=== PATIENT | female | born 1985 | race Caucasian/White ===

== ENCOUNTER 2017-07-14 13:51 | Inpatient (IN) ==
[2017-07-14] MEDS ORDERED: NS 1,000 ML IV ONE (15:12)
[2017-07-14 15:17] LABS: URINE CULTURE PL NEEDED? NO
[2017-07-14 15:26] LABS: BILIRUBIN URINE NEGATIVE (NEGATIVE); BLOOD URINE 4+ (NEGATIVE); CLARITY SL. CLOUDY (CLEAR); COLOR AMBER; GLUCOSE URINE NEGATIVE (NEGATIVE); LEUKOCYTES URINE 2+ (NEGATIVE); NITRITE URINE NEGATIVE (NEGATIVE); PH URINE 6.5; PROTEIN URINE 1+(30 mg/dL) mg/dL (NEGATIVE); UROBILINOGEN URINE NORMAL
[2017-07-14 15:27] LABS: URINE EPITHELIAL CELLS <10 /HPF (<10); URINE RBC TNTC /HPF (<10); URINE SOURCE CLEAN CATCH
[2017-07-14 15:32] LABS: MANUAL DIFF NEEDED? NO
[2017-07-14 15:35] LABS: BASO% 0.4 % (0.0-0.8); EOS# 0.34 X1000 (0.0-0.7); EOS% 2.6 % (0.0-10.0); HEMATOCRIT 31.1 % (37.0-47.0); HEMOGLOBIN 10.2 g/dL (12.0-16.0); IMM GRAN# 0.17 X1000 (0.0-0.04); IMM GRAN% 1.3 % (0.0-0.5); LYMPH# 3.05 X1000 (1.2-3.4); LYMPH% 23.3 % (20.5-51.1); MCH 27.8 PG (27-31); MCHC 32.8 g/dL (33-37); MCV 84.7 FL (81-99); MONO# 0.43 X1000 (0.11-0.59); MONO% 3.3 % (1.7-9.3); MPV 10.7 FL (7.4-10.4); NEUT% 69.1 % (42.2-75.2); PLT 271 X1000 (130-400); RBC 3.67 XMIL (4.2-5.4)
[2017-07-14 15:51] LABS: AGAP 14; ALBUMIN 3.3 g/dL (3.5-5.0); ALKALINE PHOSPHATASE 159 U/L (32-104); AMYLASE 18 U/L (20-200); BUN 8 mg/dL (8-22); CALCIUM 8.8 mg/dL (8.8-10.2); CHLORIDE 106 mmol/L (98-107); CK PROFILE 60 U/L (24-173); COSMO 281; GOT 21 U/L (10-30); GPT 30 U/L (10-36); LIPASE 29 U/L (13-60); MAGNESIUM 1.8 mg/dL (1.5-2.7); POTASSIUM 3.2 mmol/L (3.5-5.1); SODIUM 142 mmol/L (136-145); TCO2 22 mmol/L (25-35); TOTAL PROTEIN 6.4 g/dL (6.3-8.3)
[2017-07-14 15:55] LABS: UR AMPHETAMINES QUAL NONE DETECTED (NONE DETECT); UR BARBITUATES QUAL NONE DETECTED (NONE DETECT); UR BENZODIAZEPIN QUAL NONE DETECTED (NONE DETECT); UR CANNABINOIDS QUAL NONE DETECTED (NONE DETECT); UR COCAINE QUAL NONE DETECTED (NONE DETECT); UR MDMA QUAL NONE DETECTED (NONE DETECT); UR METHADONE QUAL NONE DETECTED (NONE DETECT); UR METHAMPHETAMINE QUAL NONE DETECTED (NONE DETECT); UR OPIATES QUAL NONE DETECTED (NONE DETECT); UR OXYCODONE QUAL NONE DETECTED (NONE DETECT); UR PCP QUAL NONE DETECTED (NONE DETECT); UR TCA QUAL NONE DETECTED (NONE DETECT)
--- NOTE | 2017-07-14 16:01 | PROVIDER DOCUMENTATION ---
This chart was entered by Kristen Dumont Scribe, acting as scribe for Martin Carlson MD. HPI-Female /OB/Breast - General Chief Complaint: Complaint Stated Complaint: POST PART COMPLAINT Time Seen by Provider: 07/14/17 14:12 Source: reports: patient Allergies/Adverse Reactions: Patient Allergies Allergy/AdvReac Type Severity Reaction Status Date / Time codeine Allergy ITCHING Verified 04/26/15 15:23 nalbuphine HCl * Allergy HIVES Verified 04/26/15 15:23 [From Nubain] Home Medications: Home Medication List Medication Instructions Recorded Confirmed Last Taken Type Pnv95/Ferrous Fumarate/FA 1 tab PO DAILY 03/12/17 03/12/17 03/12/17 History [ Vitamins Tablet] - History of Present Illness-Female /OB Nature of Presenting Problem: Pt is a 32 y/o F presents to the ED with generalized abdominal pain. Pt states she is one week post . Pt states vaginal delivery. Pt states she is A0. Pt states diarrhea and nausea. Pt denies vomiting. Pt states weakness, SOB and chills. Does patient report she is ?: No (7 days post ) Location of complaint: reports: other (generalized abdomen) Radiation: reports: none Quality of Pain: reports: aching Severity in ED: reports: mild Onset/Duration: reports: 1 week ago Timing: reports: still present Context/Activities at Onset: reports: light activity Vaginal Symptoms: reports: no symptoms Vaginal Bleeding Amount: None Urinary Symptoms: reports: no symptoms Contraception: reports: none Modifying Factors: improves with: nothing Associated Symptoms: reports: diarrhea, fever/chills (chills), nausea, weakness , other (SOB) Similar Symptoms Previously?: Yes (present for one week ) Recently seen or treated by another doctor?: Yes (seen OBGYN one week ago ) - LMP/ History Menstrual Status: post- : 2 Para: 2 : 0 Prior Delivery: vaginal Review of Systems - Adult - REVIEW OF SYSTEMS - ADULT Constitutional: reports: chills. denies: fever, fatique Eyes: denies: decreased vision, blurred vision, double vision Ears, Nose, Mouth & Throat: denies: ear pain, nose pain, throat pain Cardiovascular: denies: chest pain, heart murmur, irregular heart rate Respiratory: reports: shortness of breath. denies: cough, wheezing Gastrointestinal: reports: abdominal pain (generalized), diarrhea, nausea. denies: vomiting Genitourinary: denies: dysuria, flank pain, hematuria Musculoskeletal: denies: bone pain, joint pain, neck pain Integumentary: denies: hives, itching, rash Neurological: denies: dizziness/vertigo, headache/migraines, numbness, seizure, syncope Psychiatric: reports: no symptoms reported Endocrine: reports: no symptoms reported Hematologic/Lymphatic: reports: no symptoms reported Allergic/Immunologic: reports: no symptoms reported All Other Systems: Reviewed and Negative Past History - Adult - PAST MEDICAL HISTORY-ADULT Review of Records: reports: Nursing Assessment Review, Medications Reviewed, Social history reviewed & non-contributory. Major Childhood Illnesses: reports: denies history Cardiovascular: reports: denies history Respiratory: reports: denies history Gastrointestinal: reports: denies history Obstetrical/Gynecological: reports: denies history Genitourinary: reports: kidney stones Musculoskeletal: reports: denies history Neurological: reports: denies history Psychiatric: reports: anxiety Endocrine/Immune: reports: denies history Other Conditions: reports: denies history - PRIOR SURGERIES/PROCEDURES Surgical/Procedure History: reports: cholecystectomy - IMMUNIZATION STATUS Childhood Immunizations: See Nurse Assessment Flu Vaccine: See Nurse Assessment - FAMILY HISTORY Family History: reviewed, not pertinent - SOCIAL HISTORY Smoking: cigarettes, greater than 1 pack/day Provider spent 3-5 mins advising pt. on dangers of tobacco.: Discussed manners to quit use, and f/u contacts for add'l counseling. Substance Use: alcohol Alcohol Use Frequency: occasionally Number of drinks per typical drinking period:: 2 drinks Living Situation: family Physical Exam-General - PHYSICAL EXAM-ADULT Initial Vital Signs Reviewed: Yes - CONSTITUTIONAL General Appearance: appears well, alert, no apparent distress. negative: lethargic, slow to respond - EYES Eyes: PERRL/EOMI, pink conjunctivae. negative: pale conjunctivae, sunken eyes - HEAD, EARS, NOSE, MOUTH & THROAT HENMT: normal ENT inspection. negative: angioedema, hearing deficit - NECK Neck: normal inspection. negative: lymphadenopathy, tender lateral - RESPIRATORY Respiratory: chest non-tender, lungs clear, normal breath sounds. negative: crackles, wheezing - CARDIOVASCULAR Cardiovascular: normal peripheral pulses, regular rate, rhythm. negative: tachycardia, systolic murmur - GASTROINTESTINAL (ABDOMEN) Abdominal Exam: normal bowel sounds, soft, tenderness (generalized). negative: distended, rebound - LYMPHATIC Lymphatic: no adenopathy. negative: enlargement, streaking - MUSCULOSKELETAL Back Exam: normal inspection. negative: ecchymosis, vertebral tenderness Extremity: normal inspection. negative: deformity, erythema, tenderness - SKIN Integumentary: normal color, normal turgor, warm/dry. negative: diaphoresis, ecchymosis, erythema, laceration(s) - NEUROLOGIC Neurologic: grossly normal. negative: aphasia, facial droop - PSYCHIATRIC Psych/Mental Status: normal mood/affect, oriented x 3. negative: paranoid, tearful Progress - PLAN OF CARE/RESULTS Progress/Plan/Lab Results: Vital Signs - 8 hr 07/14/17 13:56 07/14/17 16:58 07/14/17 17:07 Temperature 98 F Pulse Rate 58 L 47 L 47 L Respiratory Rate 18 20 21 Blood Pressure 184/101 179/86 178/92 O2 Sat by Pulse Oximetry 98 94 L 97 Laboratory Results - last 24 hr 07/14/17 07/14/17 07/14/17 15:10 15:10 15:29 WBC RBC Hgb Hct MCV MCH MCHC RDW Std Deviation Plt Count MPV Immature Gran % (Auto) Neut % (Auto) Lymph % (Auto) Jerome % (Auto) Eos % (Auto) Baso % (Auto) Immature Gran # (Auto) Neut # (Auto) Lymph # (Auto) Jerome # (Auto) Eos # (Auto) Baso # (Auto) Sodium 142 Potassium 3.2 L Chloride 106 Carbon Dioxide 22 L Anion Gap 14 BUN 8 Creatinine 0.7 Estimated GFR/1.73 m2 > 60 BUN/Creatinine Ratio 11 Glucose 85 Calculated Osmolality 281 Calcium 8.8 Magnesium 1.8 Total Bilirubin 0.20 AST 21 ALT 30 Alkaline Phosphatase 159 H Creatine Kinase 60 Troponin T [id number] Pept Total Protein 6.4 Albumin 3.3 L Globulin 3.0 Albumin/Globulin Ratio 1.0 Amylase 18 L Lipase 29 Urine Source CLEAN CATCH Urine Color MEENU Urine Clarity SL. CLOUDY A Urine pH 6.5 Ur Specific [place] 1.010 Urine Protein 1+(30 mg/dL) A Urine Ketones NEGATIVE Urine Blood 4+ Urine Nitrite NEGATIVE Urine Bilirubin NEGATIVE Urine Urobilinogen NORMAL Urine Microscopic RBC TNTC A Urine WBC 2+ A Urine Microscopic WBC 10-20 A Ur Epithelial Cells <10 Urine Glucose NEGATIVE Urine Opiates Screen NONE DETECTED Ur Oxycodone Screen NONE DETECTED Urine Methadone Screen NONE DETECTED Ur Barbituates Screen NONE DETECTED Ur Tricyclics Screen NONE DETECTED Ur Phencyclidine Scrn NONE DETECTED Ur Amphetamines Screen NONE DETECTED U Methamphetamines Scrn NONE DETECTED Urine MDMA Screen NONE DETECTED U Benzodiazepines Scrn NONE DETECTED Urine Cocaine Screen NONE DETECTED U Cannabinoids Screen NONE DETECTED 07/14/17 07/14/17 07/14/17 15:29 15: 15:29 WBC 13.09 H RBC 3.67 L Hgb 10.2 L Hct 31.1 L MCV 84.7 MCH 27.8 MCHC 32.8 L RDW Std Deviation 13.6 Plt Count 271 MPV 10.7 H Immature Gran % (Auto) 1.3 H Neut % (Auto) 69.1 Lymph % (Auto) 23.3 Jerome % (Auto) 3.3 Eos % (Auto) 2.6 Baso % (Auto) 0.4 Immature Gran # (Auto) 0.17 H Neut # (Auto) 9.05 H Lymph # (Auto) 3.05 Jerome # (Auto) 0.43 Eos # (Auto) 0.34 Baso # (Auto) 0.05 Sodium Potassium Chloride Carbon Dioxide Anion Gap BUN Creatinine Estimated GFR/1.73 m2 BUN/Creatinine Ratio Glucose Calculated Osmolality Calcium Magnesium Total Bilirubin AST ALT Alkaline Phosphatase Creatine Kinase Troponin T < 0.010 [id number]-Kzugnwskcbf Pept 1621 H Total Protein Albumin Globulin Albumin/Globulin Ratio Amylase Lipase Urine Source Urine Color Urine Clarity Urine pH Ur Specific [place] Urine Protein Urine Ketones Urine Blood Urine Nitrite Urine Bilirubin Urine Urobilinogen Urine Microscopic RBC Urine WBC Urine Microscopic WBC Ur Epithelial Cells Urine Glucose Urine Opiates Screen Ur Oxycodone Screen Urine Methadone Screen Ur Barbituates Screen Ur Tricyclics Screen Ur Phencyclidine Scrn Ur Amphetamines Screen U Methamphetamines Scrn Urine MDMA Screen U Benzodiazepines Scrn Urine Cocaine Screen U Cannabinoids Screen Orders Category Date Time Status Cardiac Monitoring DIRECTED Care 07/14/17 15:15 Active Saline Loc DIRECTED Care 07/14/17 15:12 Active NPO Diet 07/14/17 15:[address] ABD/PELVIS/PULM ARTERIES [CT] Stat Exams 07/14/17 15:12 Completed AMYLASE [CHEM] Stat Lab 07/14/17 15:29 Completed CBC WITH ELECTRONIC DIFF [HEME] Stat Lab 07/14/17 15:29 Completed CK PROFILE [SP CHEM] Stat Lab 07/14/17 15:29 Completed COMPREHENSIVE METABOLIC PANEL [CHEM] Stat Lab 07/14/17 15:29 Completed LIPASE [CHEM] Stat Lab 07/14/17 15:29 Completed MAGNESIUM [CHEM] Stat Lab 07/14/17 15:29 Completed PRO B-NATRIURETIC PEPTIDE Stat Lab 07/14/17 15:29 Completed TROPONIN T Stat Lab 07/14/17 15:[address] W/POSS RFLX CULT [URINALYSIS] Stat Lab 07/14/17 15:10 Completed URINE DRUG SCREEN PL Stat Lab 07/14/17 15:10 Completed 0.9% Sodium Chloride Inj [Ns] 1,000 ml Med 07/14/17 15:12 Discontinued IV 999 mls/hr CefTRIAXONE [Rocephin] 1 gm Med 07/14/17 16:25 Discontinued 0.9% Sodium Chloride Inj [Ns] 50 ml IV NOW Hydralazine [Apresoline] Med 07/14/17 17:12 Discontinued 20 mg IV NOW ONE Magnesium Sulfate 2 gm/S.w.i. [Magnesium Sulfate 2 gm/S Med 07/14/17 17:12 Active .w.i] 2 gm in 50 ml IV NOW Result Diagrams: 07/14/17 15:29 07/14/17 15:29 - CT/MRI 1 CT Study: Abdomen, Pelvis Impression: Abnormal (chest: no pulmonary emboli. small pleural effusions with basilar atelectasis. mildly prominent mediastinal nodes. abdomen and pelvis: enlarged uterus with fluid or debris in the uterine cavity. a test is recommened if one has not been performed. hepatosplenomegaly. tiny amount of ascites. cholecysyectomy.) - CONSULTS/PCP/HOSPITALIST Notification #1 *Consult/PCP/Hospitalist*: Dr. Pink Time Discussed: 16:38 Reason/Comments: Dr. Carlson consulted with Dr. Pink about Pt's CT Consult Disposition: other (Dr. Pink Pt uterus is still enlarged and has debride in uterus) #2 Consult: Dr. Silverio Time Discussed: 17:06 Reason/Comments: Dr. Carlson consulted with Dr. Silverio about Pt Consult Disposition: other (Dr. Silverio will consult) #3 Consult: Dr. Quiles Time Discussed: 17:11 Reason/Comments: Dr. Carlson consulted with Dr. Quiles about Pt Consult Disposition: Admit Departure - Departure Date of Disposition Decision: 07/14/17 Time of Disposition Decision: 17:31 DIAGNOSIS: Preeclampsia, CHF (congestive heart failure), Hypertension, complication Disposition: ADMITTED INPATIENT 09 Certified Medical Emergency: Emergent Condition: Stable Referrals and Follow-Ups: Marco A Treviño MD [Primary Care Provider] - - Critical Care Note This patient required my direct & personal management of CC.: No Attestation - Physician/ ROXANNE Attestation Patient care was provided by Advanced Practice Provider:: No The physician spent face to face time with patient:: Yes Advanced Practice Provider documentation review:: Supervising physician onsite and consulted in the evaluation and care of this patient. The physician did have a face to face encounter with the patient. This chart was documented by the indicated scribe, (Kristen Dumont Scribe) and accurately reflects the services I performed and decisions made by me, Martin Carlson MD, as attested by the provider's signature.
[2017-07-14] MEDS ORDERED: ROCEPHIN 1 GM in NS 50 ML IV ONE (16:25)
--- NOTE | 2017-07-14 16:40 | Diag Imaging Result Doc PS360 ---
EXAM: CT ABD/PELVIS/PULM ARTERIES HISTORY: Cough and abd pain TECHNIQUE: CT chest with intravenous contrast. Arterial protocol with MIP images. CT abdomen and pelvis with with contrast. Low-dose technique. COMPARISON: None. FINDINGS: Chest: There are small bilateral pleural effusions measuring approximately 1 cm in the midline. No thoracic aortic aneurysm or dissection. Heart is borderline mildly prominent. Normal opacification of the pulmonary arteries and their major branches. Mildly prominent mediastinal lymph nodes. Atelectasis is found in the lower lobes inferiorly. No consolidation. No bronchiectasis. No emphysematous changes. Abdomen and pelvis: The liver is prominent. The gallbladder has been removed. The spleen is mildly prominent measuring 6.2 x 13.8 x 14.5 cm. Normal pancreas and adrenal glands. Normal enhancement of the kidneys. No hydronephrosis. Normal aorta. Small para-aortic lymph nodes. A small amount of fluid is four found about the liver. No bowel obstruction. No inflammation about the cecum. The uterus is enlarged measuring 12.8 x 15.1 x 8.3 cm. There is fluid and debris within the uterine cavity. The urinary bladder is moderately distended and appears normal. Normal ovaries. IMPRESSION: Chest: 1. No pulmonary emboli 2. Small pleural effusions with basilar atelectasis 3. Mildly prominent mediastinal nodes Abdomen and pelvis: 1. Enlarged uterus with fluid or debris in the uterine cavity. A test is recommended if one has not been performed. 2. Hepatosplenomegaly 3. Tiny amount of ascites 4. Cholecystectomy A preliminary report was called to the ER physician Electronically signed by Navdeep Pink 07/14/2017 4:38 PM
[2017-07-14] MEDS ORDERED: APRESOLINE IV ONE (17:12)
[2017-07-14] MEDS ORDERED: MAGNESIUM SULFATE 2 GM/S.W.I. 2 GM/50 ML IVPB IV ONE (17:12)
[2017-07-14] MEDS ORDERED: NS 100 ML ONE (17:51)
[2017-07-14] MEDS ORDERED: TYLENOL PO ONE (20:01)
[2017-07-14] MEDS ORDERED: TYLENOL ONE (20:02)
[2017-07-14] MEDS ORDERED: TYLENOL PO PRN (20:11)
[2017-07-14] MEDS ORDERED: ZOFRAN IV PRN (20:11)
[2017-07-14] MEDS: LASIX IV SCH (20:55)
[2017-07-14] MEDS ORDERED: NICODERM PATCH TD ONE (21:54)
[2017-07-14] MEDS: NORCO-5 PO PRN (22:21)
--- NOTE | 2017-07-15 03:50 | HISTORY AND PHYSICAL ---
ADDENDUM: Patient was admitted through the ER. Notes that she had a baby approximately 1 week ago. She has been feeling fine until yesterday. She started having shortness of breath today. The shortness of breath increased. She started having swelling in her lower extremities. States that today her shortness of breath increased. She is unable to lay flat in the bed. She is having difficulty walking due to her shortness of breath. She is having increased edema. PHYSICAL EXAMINATION: VITAL SIGNS: Much improved. Blood pressures was elevated 180's. On admission to the ER, her blood pressures were 180's/110's. She was given hydralazine in the ER. Currently is much better. GENERAL: She is awake, alert. She is sitting straight up in the bed secondary to her shortness of breath. PLAN: We will admit her to the hospital. Place her on Lasix. Her B-type natriuretic peptide is elevated at 1620. We will check an echocardiogram in the a.m. Certainly appears as though she has a urinary infection. We will give Rocephin until cultures are negative and we will continue to follow. Please see full dictation. cc: Jalen Quiles MD
[2017-07-15] MEDS: NORCO-5 PO PRN ×5 (04:38→22:10)
[2017-07-15 06:30] LABS: HEMATOCRIT 31.4 % (37.0-47.0); HEMOGLOBIN 10.1 g/dL (12.0-16.0); MCH 27.2 PG (27-31); MCHC 32.2 g/dL (33-37); MCV 84.6 FL (81-99); MPV 11.3 FL (7.4-10.4); RBC 3.71 XMIL (4.2-5.4)
[2017-07-15 07:06] LABS: AGAP 14; ALBUMIN 3.2 g/dL (3.5-5.0); ALKALINE PHOSPHATASE 156 U/L (32-104); BUN 8 mg/dL (8-22); CALCIUM 8.5 mg/dL (8.8-10.2); CHLORIDE 103 mmol/L (98-107); COSMO 279; GOT 26 U/L (10-30); GPT 36 U/L (10-36); MAGNESIUM 1.8 mg/dL (1.5-2.7); POTASSIUM 2.7 mmol/L (3.5-5.1); SODIUM 141 mmol/L (136-145); TCO2 24 mmol/L (25-35); TOTAL PROTEIN 6.3 g/dL (6.3-8.3)
[2017-07-15 07:10] LABS: FREE T4 0.99 ng/dL (0.93-1.70)
[2017-07-15] MEDS: LASIX IV SCH ×2 (08:42→22:10)
[2017-07-15] MEDS: NICODERM PATCH TD SCH (08:43)
[2017-07-15] MEDS: KLOR-CON PO SCH ×2 (10:06→22:10)
[2017-07-15] MEDS: PRECARE PO SCH (10:06)
--- NOTE | 2017-07-15 10:36 | HISTORY AND PHYSICAL ---
CHIEF COMPLAINT: Generalized abdominal pain 1 week of a vaginal delivery. HISTORY OF PRESENTING ILLNESS: This is a 32-year-old female who presented to [facility] ER with complaints of generalized abdominal pain one week of vaginal delivery. She is a G2, P2, A0. Also complained of weakness, shortness of breath, and chills. When she arrived to the ER she had a blood pressure of 184/101. She was saturating 98% on room air. We did an abdomen and pelvic CT and a chest CT. The chest showed no pulmonary emboli. Small pleural effusions with basilar atelectasis. Her abdomen and pelvis CT showed an enlarged uterus with fluid or debris in the uterine cavity, hepatosplenomegaly and a tiny amount of ascites. So, she was admitted for further evaluation and treatment. PAST MEDICAL HISTORY: Anxiety. PAST SURGICAL HISTORY: Cholecystectomy. FAMILY HISTORY: Noncontributory. SOCIAL HISTORY: She currently lives with family. No tobacco, alcohol, or illicit drug use. ALLERGIES: Codeine and nalbuphine. HOME MEDICATIONS: She takes a vitamin daily. LABORATORY DATA: Showed a white blood cell count of 13.09, a hemoglobin of 10.2, hematocrit 31.1, platelets 271,000. Sodium of 142, potassium 3.2, chloride 106, CO2 22, BUN of 8, creatinine 0.7, glucose 85, magnesium 1.8. Creatine kinase was 60 with a troponin of less than 0.010 with a proBNP of 1,621. Urinalysis showed 4+ blood, 2+ white blood cells. Urine drug screen was negative. CT of the chest showed no pulmonary emboli. Small pleural effusions with basilar atelectasis and mildly prominent mediastinal nodes. Abdomen and pelvic CT showed an enlarged uterus with fluid or debris in the uterine cavity. A test is recommended if 1 has not been performed. Tiny amount of ascites and a cholecystectomy was also noted. REVIEW OF SYSTEMS: She denied any fever. She was positive for chills, weakness, shortness of breath, generalized abdominal pain. She denied any chest pain, coughing, constipation. She was positive for some diarrhea and nausea. No vomiting. No burning or hurting with urination. PHYSICAL EXAMINATION: VITAL SIGNS: Showed a temperature of 98 degrees, pulse of 58, respirations 18, blood pressure 184/101, saturating 98% on room air. GENERAL: This is a 32-year-old female who is sitting up in the bed, and answers questions appropriately. HEENT: Normocephalic and atraumatic. Pupils are equal, round, and reactive to light. Extraocular movements are intact. The oropharynx and nares are clear. NECK: Supple. LUNGS: Clear to auscultation bilaterally with equal lung expansion and chest wall movement. HEART: With regular rate and rhythm. No murmurs, rubs, or gallops. ABDOMEN: Soft, nontender, nondistended. Bowel sounds are present x4 quadrants. EXTREMITIES: No clubbing, cyanosis, or edema. NEUROLOGICAL: The cranial nerves 2 through 12 appear grossly intact. ASSESSMENT: 1. Generalized abdominal pain. 2. Hypokalemia. 3. Hypertension. 4. Questionable urinary tract infection with hematuria. PLAN: She was admitted to the medical unit at [facility], placed on telemetry, daily weights, healthy heart diet. We will consult [facility] and they were notified via the ER physician yesterday of the CT findings. She was placed on Lasix 40 mg IV q.12. Will supplement her potassium with 40 mEq of potassium b.i.d. Place on Rocephin 1 gram IV q.24. Urine culture is pending. Will recheck a CBC and a BMP in the a.m. Echocardiogram is also pending. Dictated by TORIE Mishra for Jalen Quiles MD cc: TORIE Mishra MD
--- NOTE | 2017-07-15 11:08 | CONSULTATION ---
DATE OF CONSULTATION: 07/15/2017 HISTORY OF PRESENT ILLNESS: Alisa Patel is a 32-year-old, who is 1 week out from vaginal delivery. She was admitted to the hospital yesterday with shortness of breath and hypertension. She had a CAT scan that did not show pulmonary embolism. There was some concern about debris in her uterus, but it appears to be normal for her state. Her urinalysis showed a lot of red blood cells, but she is still bleeding from delivery. Unfortunately, this is a clean-catch and not a cath specimen, so it is hard to comment on urinalysis. Her laboratory evaluations did show a normal platelet count. Her AST and ALT are normal. So, I doubt we are dealing with preeclampsia. This probably more of hypertension and pulmonary edema. She states this morning she is feeling better. She is breathing without difficulty. PHYSICAL EXAMINATION: Vital signs: She is afebrile. Her blood pressure is 142 /89. Pulse rate is 58. Abdomen: Is nontender. She is having appropriate lochia for being 1 week . RECOMMENDATIONS: In summary, I do not see any evidence of retained placenta. I do not feel a D and C is necessary. I am unable to comment much on the urinalysis, as this is a clean-catch specimen, she still bleeding from her delivery. I will continue to follow the patient. cc: Puneet Fulton MD MTDD
--- NOTE | 2017-07-15 11:11 | PROGRESS NOTE ---
DATE: 07/15/2017 SUBJECTIVE: Patient is sitting up in bed. States she still has some mild abdominal pain mostly epigastric, but otherwise no complaints voiced. States she is feeling better. OBJECTIVE: Vital signs: Temp 97.7 degrees, pulse 58, respirations 18, blood pressure 142/89, saturating 100% on room air. General: This is a 32-year-old female, who is sitting up in the bed, and answers questions appropriately. HEENT: Normocephalic and atraumatic. Pupils are equal, round, reactive to light. The extraocular movements are intact. The oropharynx and nares are clear. Neck: Supple. Lungs: Were clear to auscultation bilaterally with equal lung expansion, and chest wall movement. Heart: With regular rate and rhythm. No murmurs, rubs, or gallops. Abdomen: Soft, nontender, and nondistended. Bowel sounds are present x4 quadrants. Extremities: No clubbing, cyanosis, or edema. Neurological: The cranial nerves 2-12 appear grossly intact. LABS: White blood cell count of 12.30, hemoglobin of 10.1, hematocrit 31.4, platelets of 305,000. Sodium 141, potassium 2.7, chloride 103, CO2 24, BUN of 8, creatinine 0.7, glucose 86, magnesium of 1.8. Cardiac enzymes this morning showed a creatine kinase of 44 with a troponin of less than 0.010. TSH of 2.59 with a free T4 of 0.99. ASSESSMENT AND PLAN: 1. Generalized abdominal pain, improved. Gynecology was consulted and saw the patient and felt that the fluid seen in her uterus on the CT was just blood. No retained debris at this time. We did a complete abdominal exam and see his dictation but did not feel there were any abnormal findings at this time. 2. cardiomyopathy. An echocardiogram is pending. We will continue her intravenous diuresis. Blood pressure is improved today from arrival. She states that she is having good output and is feeling less short of breath today. We will await results of her echocardiogram. 3. Questionable urinary tract infection with hematuria. Urine culture is pending. We will continue her Rocephin 1 gram intravenous q.24, with second dose today. 4. Hypertension, improved. Will continue to monitor. Dictated by TORIE Mishra for Beau Mcgowan MD cc: TORIE Mishra MD
[2017-07-15] MEDS ORDERED: NS 500 ML ONE (11:24)
[2017-07-15] MEDS: POTASSIUM CHLORIDE 20 MEQ/SWI 20 MEQ/100 ML IVPB IV SCH ×2 (11:31→15:28)
[2017-07-15] MEDS ORDERED: ROCEPHIN 1 GM in NS 50 ML IV SCH (16:00)
--- NOTE | 2017-07-15 16:42 | ECHO REPORT ---
ORDER DATE: 07/15/2017 INDICATIONS: Congestive heart failure. edema. FINDINGS: 1. The right atrium appears to be normal in size. 2. There is moderate and possibly severe tricuspid regurgitation. The patient has a very eccentric jet of mitral regurgitation suggesting that could possibly be more significant than moderate. There is an RV systolic pressure of 42. 3. Right ventricle does appear to be somewhat enlarged. There is flattening of the septum in diastole consistent with right-sided volume overload. 4. Normal right ventricular function. 5. Trace pulmonic insufficiency. 6. Mild left atrial enlargement at 4.2 cm. 7. No mitral valve prolapse. Mild mitral regurgitation. 8. Normal LV size, end-diastolic dimension of 4.9. Normal wall thicknesses with a posterior and interventricular septal wall thickness of 0.9 cm each. Normal LV systolic function. Calculated EF of 61%. 9. Aortic valve opens well. It is trileaflet. No evidence of stenosis or insufficiency. 10. Aorta appears normal in visualized segments. 11. No pericardial effusion identified. cc: MD Jalen Lewis MD
--- NOTE | 2017-07-15 20:08 | PROGRESS NOTE ---
DATE: 07/14/2017 ADDENDUM: The patient is seen and examined; seen [id number]. PHYSICAL EXAMINATION: Patient's pulmonary exam, she did have some rales. Abdominal exam was benign. PROBLEM LIST: Clinically, patient developed volume overload for which she has been admitted for and hypertension with concern over possible eclampsia. Patient was evaluated. Her echocardiogram does not show heart failure but she has got severe tricuspid regurgitation, unknown mechanism. She is only 32 years old. So, I will go ahead and get a cardiology consultation. We will continue diuretics and follow up. Clinically, she looks well. I think she could probably be discharged soon. However, we will need obviously a plan with Cardiology for that. cc: Beau Mcgowna MD
[2017-07-16 06:12] LABS: MANUAL DIFF NEEDED? NO
[2017-07-16 06:42] LABS: AGAP 11; BUN 12 mg/dL (8-22); CALCIUM 8.5 mg/dL (8.8-10.2); CHLORIDE 103 mmol/L (98-107); COSMO 282; POTASSIUM 3.3 mmol/L (3.5-5.1); SODIUM 142 mmol/L (136-145); TCO2 28 mmol/L (25-35)
[2017-07-16 06:44] LABS: BASO% 0.5 % (0.0-0.8); EOS# 0.45 X1000 (0.0-0.7); EOS% 4.6 % (0.0-10.0); HEMOGLOBIN 10.9 g/dL (12.0-16.0); IMM GRAN# 0.07 X1000 (0.0-0.04); IMM GRAN% 0.7 % (0.0-0.5); LYMPH# 3.64 X1000 (1.2-3.4); LYMPH% 36.8 % (20.5-51.1); MCH 27.3 PG (27-31); MCHC 32.1 g/dL (33-37); MONO# 0.46 X1000 (0.11-0.59); MONO% 4.7 % (1.7-9.3); MPV 11.2 FL (7.4-10.4); NEUT% 52.7 % (42.2-75.2); PLT 296 X1000 (130-400)
[2017-07-16] MEDS: LASIX IV SCH (08:44)
[2017-07-16] MEDS: PRECARE PO SCH (08:44)
[2017-07-16] MEDS: KLOR-CON PO SCH (08:44)
[2017-07-16] MEDS: NICODERM PATCH TD SCH (08:44)
[2017-07-16] MEDS: NORCO-5 PO PRN ×2 (08:54→13:37)
[2017-07-16 11:55] VITALS: BP 123/83
--- NOTE | 2017-07-16 14:33 | CONSULTATION ---
DATE OF CONSULTATION: 07/16/2017 INDICATION: Volume overload. HISTORY OF PRESENT ILLNESS: Ms. Patel is a 32-year-old, white female who recently had a vaginal delivery at [facility] with subsequent discharge around 1 week ago. She was discharged Friday of last week and over the weekend began having some shortness of breath, predominantly when lying down, as well as some markedly elevated blood pressures, diarrhea and some mild abdominal pain. She was evaluated with chest CT showing no evidence of pulmonary emboli. She had small pleural effusions and some basilar atelectasis. In addition her echo suggested RV volume overload with possible to severe TR. She was admitted for further evaluation. PAST MEDICAL HISTORY: Significant for anxiety. SOCIAL HISTORY: She currently lives with her family. No tobacco, alcohol or illicit drugs. FAMILY HISTORY: Significant for hypertension. REVIEW OF SYSTEMS: A 10 system review of systems is negative except for those things mentioned in HPI. PHYSICAL EXAMINATION: She is afebrile. Her heart rates have been anywhere from the high 40s to the 60s. Her blood pressure is 123/83, was 184/101 on presentation. Her I's and O's have been markedly negative with 5 non continent voids measured in addition to a negative fluid balance of 5 L.General: She is in no acute distress. HEENT: Oropharynx is moist. Normal dentition. Her eye examination is pink conjunctivae, white sclerae. Neck: Examination shows no obvious thyromegaly or thyroid tenderness. Cardiovascular: She is in a regular rate and rhythm. She has no murmurs, no S3. No lower extremity edema. She has warm and well-perfused lower extremities. Chest: Clear to auscultation bilaterally. No increased work of breathing. Abdomen: Soft, nontender, nondistended. No obvious organomegaly. Skin Exam: Warm and dry throughout without any rashes. Neurological: She is moving all extremities well. No obvious lateralizing deficits. Psychiatric: She is alert, oriented, pleasant. Normal mood and affect. PERTINENT DATA: CT of the abdomen and pelvis demonstrated her chest, abdomen and pelvis showed no pulmonary emboli, small pleural effusions, enlarged uterus, splenomegaly, tiny amount of ascites. Her echo showed a normal EF of 61%. She did have some mild RV enlargement with possibly severe TR and flattening of the septum at diastole consistent with right-sided volume overload. Laboratory data showed a white count of 9, hematocrit 34, platelet count of 296,000. Sodium 142, potassium is 3.3, BUN 12, creatinine 0.8. TSH and free T4 were normal. ProBNP was 16.1. ASSESSMENT: This is a 32-year-old female recently with an uncomplicated vaginal delivery around 1 week ago with subsequent discharge. PLAN: I believe she is most likely volume overloaded related to the delivery as well as a possible history of preeclampsia. She diuresed nicely and seems to be feeling much better. She seems to still have some issues with hypertension. I would initiate hydrochlorothiazide 25 mg once a day and have her follow up with me in the office within 1 month. At that time, I would likely refer her for a limited echo to re-evaluate her right side including her tricuspid valve and see if symptoms are improved. At this point, I have no further recommendations and from a cardiovascular standpoint she may be discharged. Upon entering the room she was eating [employer]. I have urged her to adhere to a low-sodium diet as this would assist with her continued diuresis. cc: Sebastian Oreilly MD MTDD
[2017-07-17] MEDS ORDERED: HYDROCHLOROTHIAZIDE PO SCH (09:00)
--- NOTE | 2017-07-17 11:03 | DISCHARGE SUMMARY ---
ADMISSION DATE: 07/14/2017 DISCHARGE DATE: 07/16/2017 ADMISSION DIAGNOSES: 1. Generalized abdominal pain. 2. Hypokalemia. 3. Hypertension. 4. Questionable urinary tract infection with hematuria. DISCHARGE DIAGNOSES: 1. Generalized abdominal pain, improved. 2. Questionable cardiomyopathy was ruled out and was determined to be just a fluid volume overload. 3. Questionable urinary tract infection with hematuria, and urine culture was negative. She continues to have some minimal hematuria, but that is related to her recent vaginal , according to CLUB WAITER/WAITRESS. 4. Hypertension. SUMMARY OF FINDINGS: This is a 32-year-old female, who was 1 week status post vaginal delivery, began having weakness, shortness of breath, and chills. She had a blood pressure 184/101 when she arrived to the emergency room. Abdomen and pelvic CT showed an enlarged uterus with fluid or debris in the uterine cavity, some hepatosplenomegaly, and a tiny amount of ascites. Her chest CT showed no pulmonary emboli. We consulted CLUB WAITER/WAITRESS to ensure that there was no retained placenta. He did not see any evidence of retained placenta. Did not feel a D and C was necessary, and that the fluid was most likely blood from the recent delivery. He felt that the hematuria in a clean catch was not a decisive presentation of true hematuria. Her urine culture showed no growth. She remained afebrile and did not have an elevation today in her white blood cell count down to 9.89. So it is felt after appropriate diuresis, that she can safely be discharged home. MEDICATIONS WILL INCLUDE: 1. A prescription for HCTZ 25 mg one p.o. daily #30 with 2 refills. 2. Potassium 40 mEq 1 p.o. daily. 3. She will continue her vitamins 1 p.o. daily. FOLLOW UP: Will be with her CLUB WAITER/WAITRESS as scheduled when she was discharged from her vaginal delivery and with [facility] within 1 month. All discharge instructions have been reviewed with the patient, and she verbalized understanding. TIME SPENT: 35 minutes. Dictated by TORIE Mishra for Beau Mcgowan MD cc: TORIE Mishra MD
== END 2017-07-16 17:25 | disposition home or self-care (01) ==
LOC: P.ED 13:51 → P.MEDSURG 20:22 → SUATTDRO 20:22
PROVIDERS: ATTEND Internal Medicine